=== PATIENT | female | born 1985 | race Caucasian/White ===

== ENCOUNTER 2025-01-08 13:32 | Outpatient (CLI) | payer MEDICAID, SELFPAY | END 2025-01-08 13:33 | disposition home or self-care (01) | PROVIDERS: PCP Physician Assistant; Visit Provider Family Medicine | DX: M53.3 Sacrococcygeal disorders, not elsewhere classified (principal) | CPT/HCPCS: G0260; 27096; J0702; Q9966 ==

== ENCOUNTER 2025-03-15 10:32 | Outpatient (CLI) | payer MEDICAID, SELFPAY ==
--- OUTSIDE RECORDS SUMMARY | 2025-03-16 00:17 | XMS_ITS | Clinical Summary ---
Author Organization [email or web address] [facility] Address [facility] [place] [address] Care Team Providers Care Senior Capital Markets Specialist Name Role Phone Angélica Alvarado Primary Care Provider [phone] Allergies No known active allergies Medications [id number] kierra Oil 1,000 mg (120 mg-180 mg) cap Take 1 capsule by mouth. 0 8 Active cholecalciferol (Vitamin D-3) 2,000 unit capsuleIndication s:Vitamin D deficiency Take 1 Capsule (2,000 units) by mouth once daily. 90 Capsule 3 1 Active folic acid 1 mg tabletIndications :Folic acid deficiency Take 1 Tablet (1 mg) by mouth once daily. 90 Tablet 3 3 Active desvenlafaxine succinate (Pristiq) 25 mg extended release tabletIndications :Moderate episode of recurrent major depressive disorder (HC) Take 1 Tablet (25 mg) by mouth once daily. 90 Tablet 3 5 Active LORazepam (ATIVAN) 0.5 mg tabIndications:So cial anxiety disorder Take 1 Tablet (0.5 mg) by mouth every 6 hours if needed for Anxiety. 30 Tablet 2 5 Active nitrofurantoin macrocrystals/mon ohydrate (Macrobid) 100 mg capsuleIndication s:Recurrent UTI (urinary tract infection) take 1 capsule as needed after sexual activity to avoid urinary tract infection 10 Capsule 12 5 Active dextroamphetamine -amphetamine 20 mg Extended-Release capsuleIndication s:ADHD (attention deficit hyperactivity disorder), combined type Take 1 Capsule (20 mg) by mouth once daily. 30 Capsule 5 Active dextroamphetamine -amphetamine (Adderall XR) 20 mg Extended-Release capsuleIndication s:ADHD (attention deficit hyperactivity disorder), combined type Take 1 Capsule (20 mg) by mouth once daily. 30 Capsule 5 025 Active dextroamphetamine -amphetamine (Adderall XR) 20 mg Extended-Release capsuleIndication s:ADHD (attention deficit hyperactivity disorder), combined type Take 1 Capsule (20 mg) by mouth once daily. 30 Capsule 5 025 Active topiramate 25 mg tabletIndications :Obesity (BMI 30-39.9) Take 25 mg at bedtime for 2 weeks, then increase to 50 mg at bedtime. 180 Tablet 3 5 Active codeine-guaiFENes in (Guaiatussin AC) 10-100 mg/5 mL liquidIndications :Acute cough Take 10 mL by mouth at bedtime if needed, may repeat once for Cough. 100 mL 5 025 Discontin ued(*Medi cation adjustmen t) dextroamphetamine -amphetamine 20 mg Extended-Release capsuleIndication s:ADHD (attention deficit hyperactivity disorder), combined type TAKE ONE CAPSULE BY MOUTH EVERY DAY. 30 Capsule 5 025 Discontin ued(Reord er (E-cancel not sent)) Active Problems Problem Noted Date Diagnosed Date Pap smear for cervical cancer screening 09/03/20 22 Overview (09/03/2022): 07/2022: NIL/HPV neg. Plan: Pap and HPV in 5 years. Obesity (BMI 30-39.9) 07/30/2022 Overview (07/30/2022): metformin Wheezing 07/30/2022 ADHD (attention deficit hype ractivity disorder), combined type 07/30/2022 Moderate episode of recurrent major depressive d isorder 01/23/2018 Tobacco use disorder 07/10/2012 Resolved Problems Problem Noted Date Diagnosed Date Resolved Date Alcohol dependence in remission 06/14/2019 10/16/2024 History of section complicating 03/06/2015 07/30/2022 Breech presentation 03/06/2015 07/30/20 History of 05/24/2011 014 Supervision of other normal 02/25/2010 11/10/2012 Other specified symptom asso ciated with female genital organs 02/25/2010 07/20/2011 Meconium passage during deli very affecting fetus or 02/25/2010 07/20/2011 Personal history of tobacco use, presenting hazards to health 02/25/2010 09/08/2014 Secondary uterine inertia, antepartum 02/25/2010 11/10/2012 Shortness of breath 11/08/2009 09/08/20 14 Overview (11/08/2009): With intercourse almost 20lbs weight gain since begin of Encounters Date Type Department Care Team Description 03/15/2025 11:00 AM CDT Office Visit [facility] [address] [place] [address] Pepito Back MD Procedure (Left SI pseudoarticulation injection) 03/11/2025 12:50 PM CDT Telemedicine [facility] [address] [place] [address] Angélica Alvarado PA Medication Management; Telehealth (Virtual visit no vitals taken) 03/11/2025 Travel 02/09/2025 Refill [facility] [address] [place] [address] Angélica Alvarado PA Refill Request (Dextroamphetamine-amphe tamine) 02/06/2025 Medical Messaging [facility] [address] [place] [address] Pepito Back MD Tamra Rinehart 01/08/2025 2:00 PM CDT Office Visit [facility] [address] [place] [address] Pepito Back MD Procedure (Left sacroiliac joint injection ) 01/07/2025 Travel 01/04/2025 Telephone [facility] [address] [place] [address] Pepito Back MD Work Note 01/02/2025 Telephone [facility] [address] [place] [address] Pepito Back MD Results 12/28/2024 9:53 AM CDT - 12/28/2024 11:59 PM CDT Hospital Encounter [facility] [address] [place] [address] Pepito Back MD Chronic left SI joint pain 12/28/2024 Travel 12/17/2024 1:40 PM CDT Office Visit [facility] [address] [place] [address] Pepito Back MD Musculoskeletal Problem (Consult left hip pain) 12/16/2024 1:20 PM CDT Office Visit [facility] [address] [place] [address] Vidhi Finch NP Cough; Chills; Chest Pain (From coughing) 12/16/2024 1:00 PM CDT Ancillary Procedure [facility] [address] [place] [address] 12/16/2024 Travel from Last 3 Months Immunizations Immunization Administration Dates Next Due DTaP 07/26/2006 HepA-HepB (Twinrix) 07/30/2022 Influenza Virus, Unspecified 08/23/2014,07/09/20 10,07/08/2009 Influenza, IIV3 (Age >=3 years) 07/10/2012,06/17 MMR 10/14/1998 Td (Age >=7 Years) 06/20/2018,10/14/1998 Tdap 12/27/2014,07/26/2006 Family History Medical History Relation Name Comments Good Health Brother 2 x 3 Other Father obesity Good Health Mother Relation Name Status Comments Brother 1 Alive 3 Brother 2 Father Alive Mother Alive Social History Tobacco Use Types Packs/Day Years Used Date Smoking Tobacco: Former Cigarettes 1 19 Smokeless Tobacco: Never Tobacco Cessation:Counseling Given: Not Answered Alcohol Use Standard Drinks/Week Comments Not Currently 0 (1 standard drink = 0.6 oz pur e alcohol) social PHQ-2 Answer Date Recorded PHQ-2 TOTAL SCORE 1 10/15/2024 Social Connections Answer Date Recorded Do you often feel lonely or isolated from those around you? 0 10/10/2024 Financial Resource Strain Answer Date R ecorded Difficulty of Paying Living Expenses 3 10/10/2024 Difficulty of Paying Living Expenses Not on file 10/10/2024 Food Insecurity Answer Date Recorded Do you worry your food will run out before you are able to buy more? 1 10/10/2024 Transportation Needs Answer Date Record ed Does lack of transportation keep you from medica l appointments? 1 10/10/2024 Does lack of transportation keep you from work, meetings or getting things that you need? 1 10/10/2024 Housing Stability Answer Date Recorded What is your housing situation today? 1 10/10/2024 Utilities Answer Date Recorded Do you have trouble paying f or utilities (for example, heat, electricity, water, phone)? 1 10/10/2024 Comments No Sex and Gender Information Value Date Recorded Sex Assigned at Not on file Legal Sex Female 7:08 AM FLOOR TECHNICIAN Gender Identity Not on file Sexual Orientation Not on file Occupation Industry Job Start Date Job End Date [employer] Not on file Not on file Not on file [employer] Not on file Not on file Not on file Not on file Not on file Not on file Not on file Obstetrics History Para Term AB IAB SAB Ectopic Multiple Livin g Live Births 3 3 3 0 0 0 0 0 0 3 3 Date Outcome GA Total Labor Labor/2nd/3rd Weight Sex Type Anes PTL Liz A1 A5 Name Clin 2009 Term 39w 5d 13h 00m/ 3.91 kg (8 lb 9.8 oz) M C-Sec tion Epidur al Livin g 8 9 Martinez Gaunt for Carolyn Delivery Location:[facility] Comments:failure to pr ogress 2011 Term 39w 3d 4.03 kg (8 lb 14 oz) F C-Sec tion Spinal N Livin g Malave Delivery Location:[facility] 2014 Term 41w 2d 3.5 kg (7 lb 11.5 oz) F C-Sec tion Spinal N Livin g 9 9 RINEH ART,B G(RAMSAY ) Rosas Delivery Location:[facility] Comments:Breech Last Filed Vital Signs Vital Sign Reading Time Taken Comments Blood Pressure 139/89 12/17/2024 1:50 PM CDT Pulse 73 12/17/2024 1:50 PM CDT Temperature 36.6 C (97.8 F) 12/17/2024 1:50 PM CDT Respiratory Rate 18 12/16/2024 12:4 4 PM CDT Oxygen Saturation 99% 12/17/2024 1:50 PM CDT Inhaled Oxygen Concentration - - Weight 112.8 kg (248 lb 9.6 oz) 12/17/2024 1:50 PM CDT shoes on Height 169.9 cm (5' 6.89) 10/15/2024 1:25 PM CS T Body Mass Index 39.06 10/15/2024 1:25 PM FLOOR TECHNICIAN Plan of Treatment Health Maintenance Due Date Last Done Comments Hepatitis B series for 19+ (2 of 3 - Hep B Twinrix 3-dose series) 08/27/2022 07/30/2022 COVID-19 vaccine series ( season) 2024 Influenza Vaccine (Season Ended) 2025 08/23/2014, 07/10/2012, 06/17/2011, Additional history exists BMI (ht and wt on same day) for age 18+ 10/15/2025 10/15/2024, 07/30/2022, 05/07/2022, Additional history exists Depression screening for age 12+ 10/15/2025 10/15/2024, 06/16/2023, 06/13/2023, Additional history exists Pap test for age 21-65 07/30/2027 , 07/30/2022, 10/31/2015, Additional history exists Tetanus booster 06/20/2028 06/20/2018, 04/0 11/2014, 07/26/2006, Additional history exists Tdap Completed 12/27/2014, 07/26/2006 HIV for age 15-65 Completed 07/30/2022, 07/20/2011 Hepatitis C screening for age 18-79 Completed 07/30/2022, 07/20/2011 Pneumococcal series for age 6-49 Aged Out No longer eligible based on patient's age to complete this topic Procedures Procedure Name Priority Date/Time Associated Diagnosis Comments XR INJ SACROILIAC JOINT LEFT Routine 01/08/2025 12:00 AM CDT Chronic left SI joint pain CT SPINE SACRUM WO Routine 12/28/2024 10 :22 AM CDT Chronic left SI joint pain XR CHEST 2 VIEWS PA AND LATERAL STAT 12/16/2024 1:06 PM CDT Acute cough ANTI HIV 1/2 Routine 07/30/2022 9:53 AM CDT Screening examination for venereal disease ANTI HCV Routine 07/30/2022 9:53 AM CDT Screening examination for venereal disease PSYCHIATRIC NURSE PRACTITIONER THIN PREP PAP SCREEN IMAGED Routine 07/30/2022 9:53 AM CDT Pap smear for cervical cancer screening from Last 3 Months or Most Recently Relevant to Health Maintenance Results * XR INJ SACROILIAC JOINT LEFT (01/08/2025 12:00 AM CDT) Anatomical Region Laterality Modality SACRUM Other us Pepito Back MD FLUOROSCOPY Final Resu lt * CT SPINE SACRUM WO (12/28/2024 10:22 AM CDT) Anatomical Region Laterality Modality Computed Tomogra phy 12/31/2024 7:38 AM CDT Impressions 12/31/2024 7:38 AM CDT 1. Normal alignment. No fractures. 2. Asymmetric moderate degenerative changes of left SI joint compared to the right. No gross abnormal interspace widening or joint effusions. 3. Asymmetric sacralization of L5 on the left. Please note that all CT scans at this facility use dose modulation, iterative reconstruction, and/or weight-based dosing when appropriate to reduce radiation dose to as low as reasonably achievable. Dictated by Magdy Ames MD @ 12/31/2024 7:38:20 AM (Electronically Signed) Narrative 12/31/2024 7:38 AM CDT For Patients: As a result of the Cures Act, medical imaging exams and procedure reports are released immediately into your electronic medical record. You may view this report before your referring provider. If you have questions, please contact your health care provider. INDICATION: Chronic left SI joint pain. COMPARISON: None. TECHNIQUE: Noncontrast CT of these lower lumbar spine, sacrum and coccyx. FINDINGS: Normal alignment of the visualized lower lumbar spine, sacrum and coccyx. No fractures. Best appreciated on axial coronal imaging, there is asymmetric moderate degenerative changes of the left SI joint compared to the right (series 4, image 46; series 5, image 66). However, there is no gross abnormal joint space widening or large joint effusions. Asymmetric sacralization of L5 on the left. No sclerotic or lytic osseous lesions. No narrowing of the ventral or dorsal neural foramina of the sacrum. No presacral edema or inflammation. Procedure Note Magdy Ames MD, PhD - 12/31/2024 For Patients: As a result of the Cures Act, medical imagingexams and procedure reports are released immediately into your electronicmedical record. You may view this report before your referring provider.If you have questions, please contact your health care provider. INDICATION: Chronic left SI joint pain. COMPARISON: None. TECHNIQUE: Noncontrast CT of these lower lumbar spine, sacrum and coccyx. FINDINGS: Normal alignment of the visualized lower lumbar spine, sacrum and coccyx.No fractures. Best appreciated on axial coronal imaging, there is asymmetric moderatedegenerative changes of the left SI joint compared to the right (series 4,image 46; series 5, image 66). However, there is no gross abnormal jointspace widening or large joint effusions. Asymmetric sacralization of L5 on the left. No sclerotic or lytic osseous lesions. No narrowing of the ventral or dorsal neural foramina of the sacrum. No presacral edema or inflammation. IMPRESSION: 1. Normal alignment. No fractures. 2. Asymmetric moderate degenerative changes of left SI joint compared tothe right. No gross abnormal interspace widening or joint effusions. 3. Asymmetric sacralization of L5 on the left. Please note that all CT scans at this facility use dose modulation,iterative reconstruction, and/or weight-based dosing when appropriate toreduce radiation dose to as low as reasonably achievable. Dictated by Magdy Ames MD @ 12/31/2024 7:38:20 AM (Electronically Signed) us Pepito Back MD CT Final Resu lt * XR CHEST 2 VIEWS PA AND LATERAL (12/16/2024 1:06 PM CDT) Anatomical Region Laterality Modality CHEST, THORAX, Lung, HEART Compu mary Radiography 12/16/2024 1:34 PM CDT Impressions 12/16/2024 1:34 PM CDT No acute findings and no significant change from the prior exam. Dictated by Lashawn Oneal MD @ 12/16/2024 1:34:13 PM (Electronically Signed) Narrative 12/16/2024 1:34 PM CDT For Patients: As a result of the Cures Act, medical imaging exams and procedure reports are released immediately into your electronic medical record. You may view this report before your referring provider. If you have questions, please contact your health care provider. INDICATION: Acute cough. TECHNIQUE: Chest 2 views. COMPARISON: September 20, 2023. FINDINGS: Cardiovascular and mediastinum: Cardiomediastinal silhouette is within normal limits. Lungs and pleural spaces: Lungs are clear. No sign of pleural effusion. No pneumothorax. Bones and soft tissues: No significant findings. Procedure Note Lashawn Oneal MD - 12/16/2024 For Patients: As a result of the Cures Act, medical imagingexams and procedure reports are released immediately into your electronicmedical record. You may view this report before your referring provider.If you have questions, please contact your health care provider. INDICATION: Acute cough. TECHNIQUE: Chest 2 views. COMPARISON: September 20, 2023. FINDINGS: Cardiovascular and mediastinum: Cardiomediastinal silhouette is withinnormal limits. Lungs and pleural spaces: Lungs are clear. No sign of pleural effusion.No pneumothorax. Bones and soft tissues: No significant findings. IMPRESSION: No acute findings and no significant change from the prior exam. Dictated by Lashawn Oneal MD @ 12/16/2024 1:34:13 PM (Electronically Signed) us Vidhi Finch NP GENERAL IMAGING Final Re sult * PSYCHIATRIC NURSE PRACTITIONER THIN PREP PAP SCREEN IMAGED (07/30/2022 9:53 AM CDT) Case Report Gynecologic Cytology Report Case: [id number] Authorizing Provider: Kenya Virgen NP Collected: 07/30/2022 0953 Ordering Location: [facility] Received: 07/30/2022 0953 Clinic First Screen: Anyi Lim Rescreen: Etta Hernandez Specimen: PSYCHIATRIC NURSE PRACTITIONER ThinPrep Vial Screening, Cervical 08/30/2022 12:54 PM FLOOR TECHNICIAN [facility] INTERPRETATION/ RESULT NEGATIVE FOR INTRAEPITHELIAL LESION OR MALIGNANCY (NIL) (none) 08/30/2022 12:54 PM FLOOR TECHNICIAN [facility] at 1254 FLOOR TECHNICIAN SPECIMEN ADEQUACY Satisfactory for evaluation Endocervical component present 08/30/2022 12:54 PM FLOOR TECHNICIAN [facility] HPV REQUEST HPV and PAP 08/30/2022 12:54 PM FLOOR TECHNICIAN [facility] Date of LMP 07/19/22 08/30/2022 12:54 PM FLOOR TECHNICIAN [facility] Last Pap Date 10/31/15 08/30/2022 12:54 PM FLOOR TECHNICIAN [facility] Last Pap Result NIL 12:54 PM FLOOR TECHNICIAN [facility] Abnormal Pap or [place] Bx in last 5 years No 08/30/2022 12:54 PM FLOOR TECHNICIAN [facility] Menstrual Status Regular Periods 08/30/2022 12:54 PM FLOOR TECHNICIAN [facility] [place] Bx Done Today No 08/30/2022 12:54 PM FLOOR TECHNICIAN [facility] Additional Information None given 08/30/2022 12:54 PM FLOOR TECHNICIAN [facility] Comment: Cytology is screened at [facility] - [address], [place] [address] and [facility] - [address], [place] [address] and [facility] - [address] [place] [address] Interpreted at [facility] - [address], [place] [address] Automated Review Successful 08/30/2022 12:54 PM FLOOR TECHNICIAN [facility] Comment:Specimen processed s uccessfully by automated cheese cook device, ThinPrep Imaging System, [employer] ANCILLARY TESTING PSYCHIATRIC NURSE PRACTITIONER HPV Ordered, Please see separate report 08/30/2022 12:54 PM FLOOR TECHNICIAN [facility] Note The pap test is a screening technique, not a diagnostic procedure. It is used primarily to screen for squamous cancers and precursor lesions. Published studies have shown that it is subject to both false negative and false positive results. The pap test should not be used as the sole means to diagnose or exclude pre-malignant and malignant lesions. 08/30/2022 12:54 PM FLOOR TECHNICIAN [facility] Other (Cervical) Non-Blood / Unknown 07/30/2022 9:53 AM CDT 07/30/2022 9:53 AM CDT Kenya Virgen NP PATHOLOGY/CYTOLOGY Final Result [facility] [address] [place] [address], [place] * ANTI HCV (07/30/2022 9:53 AM CDT) HEPATITIS C ANTIBODY Non-React neela Non-React neela 07/30/2022 11:22 PM CDT [facility] Comment:Antibodies to HCV no t detected; does not exclude the possibility of exposure to HCV. Blood BLOOD SPECIMEN / Unknown Venipuncture / Unknown 07/30/2022 9:53 AM CDT 07/30/2022 9:55 AM CDT us Kenya Virgen ROUTE DELIVERY SUPERVISOR SEND OUTS Final Result [facility] [address] [place] [address], [place] * ANTI HIV 1/2 (07/30/2022 9:53 AM CDT) HIV-1/HIV-2 ANTIBODY Non-Reacti ve Non-Reacti ve 07/30/2022 11:20 PM CDT [facility] Comment:HIV-1 p24 and HIV-1/ HIV-2 Ab not detected. Blood BLOOD SPECIMEN / Unknown Venipuncture / Unknown 07/30/2022 9:53 AM CDT 07/30/2022 9:55 AM CDT Kenya Virgen ROUTE DELIVERY SUPERVISOR SEND OUTS Final Result [facility] [address] [place] [address], [place] from Last 3 Months or Most Recently Relevant to Health Maintenance Insurance [facility] [address] [place] [address] x5 (Home) [phone] x5 (Work) ESCREEN ATTN [address] [address] [place] [address] [facility] Advance Directives * Full Code (Latest Code Status on File) Date Activated Date Inactivated Comments 03/08/2015 8:39 AM 03/11/2015 3:02 PM * Full Code Date Activated Date Inactivated Comments 03/08/2015 12:50 AM 03/08/2015 8:39 AM * Full Code Date Activated Date Inactivated Comments 03/07/2015 12:39 PM 03/07/2015 2:58 PM * Full Code Date Activated Date Inactivated Comments 03/06/2015 2:17 AM 03/06/2015 7:51 AM Question Answer Comments Code Status Discussion: Not Discussed * Full Code Date Activated Date Inactivated Comments 03/04/2015 1:39 AM 03/04/2015 4:29 AM Care Teams Senior Capital Markets Specialist Relationship Specialty Start Date End Date Angélica Alvarado PA [address] [place] [address] PCP - General Physician Organic Section Technical Lead 06/13/23
--- OUTSIDE RECORDS SUMMARY | 2025-03-16 00:17 | XMS_ITS | Data Portability ---
Author Organization [facility] Address [address] [place] [address] [address] [place] [address] Care Team Providers Care Director Custom Name Role Phone [place] [facility] OTHER Assessment Encounter Date Assessment Date Assessment LastModified by Organization Details LastModified Time 06/27/2019 06/27/2019 Patient is cleared for admission into chemical dependence treatment facility and approved for routine standing orders per facility protocol. Patient is free from communicable diseases per patient self-report. Lab results will be faxed to the facility as soon as they are available and reviewed by the provider, and facility nursing staff to provide those results to patient. mike Not available 06/27/2019 15:23:42 Plan of Treatment Reminders Order Date Submit Date Provider Last Modified By Organization Details Last Modified Time Details Appointments None recorded . Lab CBC w/ auto diff 019 06/27/20 19 [facility], [address] [place], [address], 9 14:10:05 CMP, serum or plasma 06/27/20 19 [facility], [address] [place], [address], 9 14:10:06 Referral None recorded . Procedures None recorded . Surgeries None recorded . Imaging None recorded . Medication Orders None recorded . Patient TargetsNo targets recorded. Patient InstructionsNo instructions recorded. Reason for Referral None Reported. Results Created Date Observation Date Name Description Value Unit Range Abnormal Flag Note LastModifiedBy Organization Detail LastModifiedTime 06/27/20 19 06/29/2019 CBC w/ auto diff WBC 8.0 x10e3 /uL 3.4-10 .8 Not Available [facility] ([facility]) [address] [facility], [place], [address], 06/29/2019 14:10:05 06/27/20 19 06/29/2019 CBC w/ auto diff RBC 4.58 x10e6 /uL 3.77-5 .28 Not Available [facility] ([facility]) [address] [facility], [place], [address], 06/29/2019 14:10:05 06/27/20 19 06/29/2019 CBC w/ auto diff hemoglobin 14.6 g/dL 11.1-1 5.9 Not Available [facility] ([facility]) [address] [facility], [place], [address], 06/29/2019 14:10:05 06/27/20 19 06/29/2019 CBC w/ auto diff hematocrit 42.3 % 34.0-4 6.6 Not Available [facility] ([facility]) [address] [place], [address], 06/29/2019 14:10:05 06/27/20 19 06/29/2019 CBC w/ auto diff MCV 92 fL 79-97 Not Available [facility] ([facility]) [address] [facility], [place], [address], 06/29/2019 14:10:05 06/27/20 19 06/29/2019 CBC w/ auto diff MCH 31.9 pg 26.6-3 3.0 Not Available [facility] ([facility]) [address] [place], [address], 06/29/2019 14:10:05 06/27/20 19 06/29/2019 CBC w/ auto diff MCHC 34.5 g/dL 31.5-3 5.7 Not Available [facility] ([facility]) [address] [place] [address], [address], 06/29/2019 14:10:05 06/27/20 19 06/29/2019 CBC w/ auto diff RDW 12.9 % 12.3-1 5.4 Not Available [facility] ([facility]) [address] [place], [address], 06/29/2019 14:10:05 06/27/20 19 06/29/2019 CBC w/ auto diff platelets 247 x10e3 /uL 150-45 0 Not Available [facility] ([facility]) [address] [facility], [place], [address], 06/29/2019 14:10:05 06/27/20 19 06/29/2019 CBC w/ auto diff neutrophils 67 % not estab. Not Available [facility] ([facility]) [address] [place], [address], 06/29/2019 14:10:05 06/27/20 19 06/29/2019 CBC w/ auto diff lymphs 24 % not estab. Not Available [facility] ([facility]) [address] [place], [address], 06/29/2019 14:10:05 06/27/20 19 06/29/2019 CBC w/ auto diff monocytes 7 % not estab. Not Available [facility] ([facility]) [address] [facility], [place], [address], 06/29/2019 14:10:05 06/27/20 19 06/29/2019 CBC w/ auto diff eos 2 % not estab. Not Available [facility] ([facility]) [address] [facility], [place], [address], 06/29/2019 14:10:05 06/27/20 19 06/29/2019 CBC w/ auto diff basos 0 % not estab. Not Available [facility] ([facility]) [address] [facility], [place], [address], 06/29/2019 14:10:05 06/27/20 19 06/29/2019 CBC w/ auto diff immature cells ASSISTANT VICE PRESIDENT Not Available [facility] ([facility]) [address] [facility], [place], [address], 06/29/2019 14:10:05 06/27/2006/29/2019 CBC w/ auto diff neutrophils (absolute) 5.4 x10e3 /uL 1.4-7. 0 Not Available [facility] ([facility]) [address] [facility], [place], [address], 06/29/2019 14:10:05 06/27/2006/29/2019 CBC w/ auto diff lymphs (absolute) 2.0 x10e3 /uL 0.7-3. 1 Not Available [facility] ([facility]) [address] [facility], [place], [address], 06/29/2019 14:10:05 06/27/2006/29/2019 CBC w/ auto diff monocytes(ab solute) 0.5 x10e3 /uL 0.1-0. 9 Not Available [facility] ([facility]) [address] [facility], [place], [address], 06/29/2019 14:10:05 06/27/2006/29/2019 CBC w/ auto diff eos (absolute) 0.1 x10e3 /uL 0.0-0. 4 Not Available [facility] ([facility]) [address] [facility], [place], [address], 06/29/2019 14:10:05 06/27/2006/29/2019 CBC w/ auto diff baso (absolute) 0.0 x10e3 /uL 0.0-0. 2 Not Available [facility] ([facility]) [address] [facility], [place], [address], 06/29/2019 14:10:05 06/27/2006/29/2019 CBC w/ auto diff immature granulocytes 0 % not estab. Not Available [facility] ([facility]) [address] [facility], [place], [address], 06/29/2019 14:10:05 06/27/2006/29/2019 CBC w/ auto diff immature grans (abs) 0.0 x10e3 /uL 0.0-0. 1 Not Available [facility] ([facility]) [address] [place], [address], 06/29/2019 14:10:05 06/27/2006/29/2019 CBC w/ auto diff NRBC ASSISTANT VICE PRESIDENT Not Available [facility] ([facility]) [address] [place], [address], 06/29/2019 14:10:05 06/27/2006/29/2019 CBC w/ auto diff hematology comments: ASSISTANT VICE PRESIDENT Not Available [facility] ([facility]) [address] [place], [address], 06/29/2019 14:10:05 06/27/2006/29/2019 CMP, serum or plasm a glucose 88 mg/dL 65-99 Not Available [facility] ([facility]) [address] [place], [address], 06/29/2019 14:10:05 06/27/2006/29/2019 CMP, serum or plasm a BUN 10 mg/dL 6-20 Not Available [facility] ([facility]) [address] [place], [address], 06/29/2019 14:10:05 06/27/2006/29/2019 CMP, serum or plasm a creatinine 0.78 mg/dL 0.57-1 .00 Not Available [facility] ([facility]) [address] [facility] [place], [address], 06/29/2019 14:10:05 06/27/2006/29/2019 CMP, serum or plasm a eGFR if nonafricn AM 100 mL/mi n/1.7 3 >59 Not Available [facility] ([facility]) [address] [place], [address], 06/29/2019 14:10:05 06/27/20 19 06/29/2019 CMP, serum or plasm a eGFR if africn AM 116 mL/mi n/1.7 3 >59 Not Available [facility] ([facility]) [address] [facility] [place], [address], 06/29/2019 14:10:05 06/27/2006/29/2019 CMP, serum or plasm a BUN/creatini ne ratio 13 9-23 Not Available [facility] ([facility]) [address] [facility] [place], [address], 06/29/2019 14:10:05 06/27/2006/29/2019 CMP, serum or plasm a sodium 140 mmol/ L 134-14 4 Not Available [facility] ([facility]) [address] [place], [address], 06/29/2019 14:10:05 06/27/2006/29/2019 CMP, serum or plasm a potassium 4.5 mmol/ L 3.5-5. 2 Not Available [facility] ([facility]) [address] [facility], [place], [address], 06/29/2019 14:10:05 06/27/20 19 06/29/2019 CMP, serum or plasm a chloride 101 mmol/ L 96-106 Not Available [facility] ([facility]) [address] [place], [address], 06/29/2019 14:10:05 06/27/2006/29/2019 CMP, serum or plasm a carbon dioxide, total 24 mmol/ L 20-29 Not Available [facility] ([facility]) [address] [place], [address], 06/29/2019 14:10:05 06/27/20 19 06/29/2019 CMP, serum or plasm a calcium 9.5 mg/dL 8.7-10 .2 Not Available [facility] ([facility]) [address] [facility], [place], [address], 06/29/2019 14:10:05 06/27/2006/29/2019 CMP, serum or plasm a protein, total 7.0 g/dL 6.0-8. 5 Not Available [facility] ([facility]) [address] [facility] [place], [address], 06/29/2019 14:10:05 06/27/2006/29/2019 CMP, serum or plasm a albumin 4.6 g/dL 3.5-5. 5 Not Available [facility] ([facility]) [address] [facility], [place], [address], 06/29/2019 14:10:05 06/27/2006/29/2019 CMP, serum or plasm a globulin, total 2.4 g/dL 1.5-4. 5 Not Available [facility] ([facility]) [address] [facility], [place], [address], 06/29/2019 14:10:05 06/27/2006/29/2019 CMP, serum or plasm a A/G ratio 1.9 1.2-2. 2 Not Available [facility] ([facility]) [address] [facility], [place], [address], 06/29/2019 14:10:05 06/27/2006/29/2019 CMP, serum or plasm a bilirubin, total 0.4 mg/dL 0.0-1. 2 Not Available [facility] ([facility]) [address] [facility] [place], [address], 06/29/2019 14:10:05 06/27/2006/29/2019 CMP, serum or plasm a alkaline phosphatase 62 IU/L 39-117 Not Available [facility] ([facility]) [address] [facility] [place], [address], 06/29/2019 14:10:05 06/27/2006/29/2019 CMP, serum or plasm a AST (SGOT) 16 IU/L 0-40 Not Available [facility] ([facility]) [address] [facility], [place], [address], 06/29/2019 14:10:05 06/27/20 19 06/29/2019 CMP, serum or plasm a ALT (SGPT) 5 IU/L 0-32 Not Available [facility] ([facility]) [address] [facility], [place], [address], 06/29/2019 14:10:05 Result Notes Documentation Provider Name and Address Organization Details Recorded Time Cbc W/ Auto Diff : isabelle cameron, [place] - [facility] 07/02/2019 13:15:45 Cmp, Serum Or Plasma : isabelle Bah nisha, [place] - [facility] 07/02/2019 13:16:37 Problems Name Problem SNOMED Code Status Onset Date Resolution Date Notes Provider Name and Address Organization Details Recorded Time Mixed anxiety and depressive disorder 517615136 Active Whit Valentinetianalulu null, [place] - [facility] 9 15:19:00 Alcohol dependence 56284315 Active Whit Joyce null, [place] - [facility] 9 15:19:24 Cigarette smoker 52897638 Active 019 Emily cameron, [place] - [facility] 9 15:35:47 Problem Notes None recorded. Medical Equipment None Reported. Allergies No known drug allergies Medications Not known to be on any medication Vitals Date Recorded Body height Body mass index (BMI) Body weight Heart rate Respiratory rate Body temperature Oxygen saturation Oxygen saturation in Arterial blood by Pulse oximetry Systolic blood pressure Diastolic blood pressure Provider Name and Address Organization Details Last Updated DateTime 9 167.64 cm 35.5 kg/m2 80686.3 2 g 64 /min 15 /min 99 [degF] 99 % 99 % 120 mm[Hg] 80 mm[Hg] Whit Joyce [place] - [facility] 9 15:25:42 Social History Question Answer Notes LastModified by Organizat ion Details LastModified Time Tobacco Smoking Status Current Every Day Smoker Whit cameron, [place] - [facility] 06/27/2019 15:19:53 Which Illicit Or Recreational Drugs Have You Used? Pt Denies Information not available 06/27/2019 2h. Tobacco Use Yes Informati on not available 06/27/2019 How Much Tobacco Do You Smoke? 1.5 PPD Information not available 06/27/2019 How Many Years Have You Smoked Tobacco? 21 Information not available 06/27/2019 Sex: Female Functional Status Question Answer Note LastModified by Organizat ion Details LastModified Time What is your level of alcohol consumption? Heavy Information not available 06/27/2019 Do you or have you ever used smokeless tobacco? Never used smokeless tobacco Information not available 06/27/2019 Are you able to walk? YESWOREST Information not available 06/27/2019 Do you or have you ever used e-cigarettes or vape? Never used electronic cigarettes Information not available 06/27/2019 Mental Status None recorded. Family History Nothing Reported Notes:depression and anxiety runs in family Medical History No medical history recorded. Gynecological HistoryNo gynecological history recorded. Obstetrics History GPAL:G 0 P 0 0 0 0 Past Encounters Encounter ID Performer Location Encounter Start Date Encounter Closed Date Diagnosis/Indication Diagnosis SNOMED-CT Code Diagnosis ICD10 Code Diagnosis Note [id number] Emily Bah CNP [facility] ([facility]) [address] [place] [address] 06/27/2019 15:22:35 06/28/2019 18:06:37 Mixed anxiety and depressive disorder 107031843 F41.8 If not already done, patient to see in-house[facility] at this facility for evaluation and to have treatment plan optimized. Cigarette smoker 8967707 7 F17.210 Counseled on the importance of quitting smoking tobacco. Patient is at the pre-contem plation stage of change. Not ready to quit. Did not discuss pharmacolo gic and non-pharma cologic methods of quitting with patient. Patient is encouraged to call 3-942-QUIT -NOW for free tobacco cessation support and resources. Alcohol dependence 60261 003 F10.20 Currently voluntary for inpatient alcohol dependence treatment at [facility] . Doing well, remaining optimistic about recovery. Health Concerns Section Related Observation LastModified by Organization Detai ls LastModified Time None Recorded Concern Status LastModified by Organization Details LastModified Time None Recorded Advance Directives Directive None Recorded Payers Insurance Date Sequence Insurance Name Policy Number Policy [place] Covered Member ID [place] Member ID Guarantor Name 06/27/2019 1 [employer] - DOS PRIOR TO 2021 (MEDICAID REPLACEMENT - HMO) HAILEE Charles [id number] Tiana Charles Notes Date Note Type Note Provider Name and Address Organization Details Recorded Time 06/27/2019 text/html New patient pres ents today for H&P as required for admission to a chemical dependence treatment program at [facility] [place]. The drug of choice was alcohol, ingested , never injected. Last use was 06/23/19. Patient is in voluntary treatment. Is optimistic about quitting and remaining sober. Desires STI and bloodborne pathogen testing. Was last tested 10 yrs ago. Has no risk factors for infectious disease/bloodborne pathogen transmission. Smokes cigarettes, 1PPD. Not ready to quit at this time, would like to conquer one addiction at a time. Mood is good. Sleeping well. In a [facility] sexual monogamous relationshipNo risk of - [facility]b [facility] Last appt 06/07/19 LINNETTE Sun - [facility] 06/27/2019 15:36:56 OBGyn Episode No OBEpisode recorded.
--- OUTSIDE RECORDS SUMMARY | 2025-03-16 00:17 | XMS_ITS | Data Portability ---
Author Organization [place] - [facility] Address [address] [place] [address] [address] [place] [address] Care Team Providers Care Mobile Paramedical Examiner Name Role Phone [place] [facility] [...] CBC w/ auto diff 019 06/27/20 19 [facility], [address] [place], [address], 9 14:10:05 CMP, serum or plasma 06/27/20 19 [facility], [address] [place], [address], 9 14:10:06 Referral None recorded . Procedures [...] x10e3 /uL 3.4-10 .8 Not Available [facility] ([facility]) [address] [facility], [place], [address], 06/29/2019 14:10:05 06/27/20 19 06/29/2019 CBC w/ auto diff RBC 4.58 x10e6 /uL 3.77-5 .28 Not Available [facility] ([facility]) [address] [facility], [place], [address], 06/29/2019 14:10:05 06/27/20 19 06/29/2019 CBC w/ auto diff hemoglobin 14.6 g/dL 11.1-1 5.9 Not Available [facility] ([facility]) [address] [facility], [place], [address], 06/29/2019 14:10:05 06/27/20 19 06/29/2019 CBC w/ auto diff hematocrit 42.3 % 34.0-4 6.6 Not Available [facility] ([facility]) [address] [place], [address], 06/29/2019 14:10:05 06/27/20 19 06/29/2019 CBC w/ auto diff MCV 92 fL 79-97 Not Available [facility] ([facility]) [address] [facility], [place], [address], 06/29/2019 14:10:05 06/27/20 19 06/29/2019 CBC w/ auto diff MCH 31.9 pg 26.6-3 3.0 Not Available [facility] ([facility]) [address] [place], [address], 06/29/2019 14:10:05 06/27/20 19 06/29/2019 CBC w/ auto diff MCHC 34.5 g/dL 31.5-3 5.7 Not Available [facility] ([facility]) [address] [place] [address], [address], 06/29/2019 14:10:05 06/27/20 19 06/29/2019 CBC w/ auto diff RDW 12.9 % 12.3-1 5.4 Not Available [facility] ([facility]) [address] [place], [address], 06/29/2019 14:10:05 06/27/20 19 06/29/2019 CBC w/ auto diff platelets 247 x10e3 /uL 150-45 0 Not Available [facility] ([facility]) [address] [facility], [place], [address], 06/29/2019 14:10:05 06/27/20 19 06/29/2019 CBC w/ auto diff neutrophils 67 % not estab. Not Available [facility] ([facility]) [address] [place], [address], 06/29/2019 14:10:05 06/27/20 19 06/29/2019 CBC w/ auto diff lymphs 24 % not estab. Not Available [facility] ([facility]) [address] [place], [address], 06/29/2019 14:10:05 06/27/20 19 06/29/2019 CBC w/ auto diff monocytes 7 % not estab. Not Available [facility] ([facility]) [address] [facility], [place], [address], 06/29/2019 14:10:05 06/27/20 19 06/29/2019 CBC w/ auto diff eos 2 % not estab. Not Available [facility] ([facility]) [address] [facility], [place], [address], 06/29/2019 14:10:05 06/27/20 19 06/29/2019 CBC w/ auto diff basos 0 % not estab. Not Available [facility] ([facility]) [address] [facility], [place], [address], 06/29/2019 14:10:05 06/27/20 19 06/29/2019 CBC w/ auto diff immature cells HAND WELT BUTTER Not Available [facility] ([facility]) [address] [facility], [place], [address], 06/29/2019 14:10:05 06/27/2006/29/2019 CBC w/ auto diff neutrophils (absolute) 5.4 x10e3 /uL 1.4-7. 0 Not Available [facility] ([facility]) [address] [facility], [place], [address], 06/29/2019 14:10:05 06/27/2006/29/2019 CBC w/ auto diff lymphs (absolute) 2.0 x10e3 /uL 0.7-3. 1 Not Available [facility] ([facility]) [address] [facility], [place], [address], 06/29/2019 14:10:05 06/27/2006/29/2019 CBC w/ auto diff monocytes(ab solute) 0.5 x10e3 /uL 0.1-0. 9 Not Available [facility] ([facility]) [address] [facility], [place], [address], 06/29/2019 14:10:05 06/27/2006/29/2019 CBC w/ auto diff eos (absolute) 0.1 x10e3 /uL 0.0-0. 4 Not Available [facility] ([facility]) [address] [facility], [place], [address], 06/29/2019 14:10:05 06/27/2006/29/2019 CBC w/ auto diff baso (absolute) 0.0 x10e3 /uL 0.0-0. 2 Not Available [facility] ([facility]) [address] [facility], [place], [address], 06/29/2019 14:10:05 06/27/2006/29/2019 CBC w/ auto diff immature granulocytes 0 % not estab. Not Available [facility] ([facility]) [address] [facility], [place], [address], 06/29/2019 14:10:05 06/27/2006/29/2019 CBC w/ auto diff immature grans (abs) 0.0 x10e3 /uL 0.0-0. 1 Not Available [facility] ([facility]) [address] [place], [address], 06/29/2019 14:10:05 06/27/2006/29/2019 CBC w/ auto diff NRBC HAND W[employer]T [employer]TER Not Available [facility] ([facility]) [address] [place], [address], 06/29/2019 14:10:05 06/27/2006/29/2019 CBC w/ auto diff hematology comments: HAND WELT BUTTER Not Available [facility] ([facility]) [address] [place], [address], 06/29/2019 14:10:05 06/27/2006/29/2019 CMP, serum or plasm a glucose 88 mg/dL 65-99 Not Available [facility] ([facility]) [address] [place], [address], 06/29/2019 14:10:05 06/27/2006/29/2019 CMP, serum or plasm a BUN 10 mg/dL 6-20 Not Available [facility] ([facility]) [address] [place], [address], 06/29/2019 14:10:05 06/27/2006/29/2019 CMP, serum or plasm a creatinine 0.78 mg/dL 0.57-1 .00 Not Available [facility] ([facility]) [address] [facility] [place], [address], 06/29/2019 14:10:05 06/27/2006/29/2019 CMP, serum or plasm a eGFR if nonafricn AM 100 mL/mi n/1.7 3 >59 Not Available [facility] ([facility]) [address] [place], [address], 06/29/2019 14:10:05 06/27/20 19 06/29/2019 CMP, serum or plasm a eGFR if africn AM 116 mL/mi n/1.7 3 >59 Not Available [facility] ([facility]) [address] [facility] [place], [address], 06/29/2019 14:10:05 06/27/2006/29/2019 CMP, serum or plasm a BUN/creatini ne ratio 13 9-23 Not Available [facility] ([facility]) [address] [facility] [place], [address], 06/29/2019 14:10:05 06/27/2006/29/2019 CMP, serum or plasm a sodium 140 mmol/ L 134-14 4 Not Available [facility] ([facility]) [address] [place], [address], 06/29/2019 14:10:05 06/27/2006/29/2019 CMP, serum or plasm a potassium 4.5 mmol/ L 3.5-5. 2 Not Available [facility] ([facility]) [address] [facility], [place], [address], 06/29/2019 14:10:05 06/27/20 19 06/29/2019 CMP, serum or plasm a chloride 101 mmol/ L 96-106 Not Available [facility] ([facility]) [address] [place], [address], 06/29/2019 14:10:05 06/27/2006/29/2019 CMP, serum or plasm a carbon dioxide, total 24 mmol/ L 20-29 Not Available [facility] ([facility]) [address] [place], [address], 06/29/2019 14:10:05 06/27/20 19 06/29/2019 CMP, serum or plasm a calcium 9.5 mg/dL 8.7-10 .2 Not Available [facility] ([facility]) [address] [facility], [place], [address], 06/29/2019 14:10:05 06/27/2006/29/2019 CMP, serum or plasm a protein, total 7.0 g/dL 6.0-8. 5 Not Available [facility] ([facility]) [address] [facility] [place], [address], 06/29/2019 14:10:05 06/27/2006/29/2019 CMP, serum or plasm a albumin 4.6 g/dL 3.5-5. 5 Not Available [facility] ([facility]) [address] [facility], [place], [address], 06/29/2019 14:10:05 06/27/2006/29/2019 CMP, serum or plasm a globulin, total 2.4 g/dL 1.5-4. 5 Not Available [facility] ([facility]) [address] [facility], [place], [address], 06/29/2019 14:10:05 06/27/2006/29/2019 CMP, serum or plasm a A/G ratio 1.9 1.2-2. 2 Not Available [facility] ([facility]) [address] [facility], [place], [address], 06/29/2019 14:10:05 06/27/2006/29/2019 CMP, serum or plasm a bilirubin, total 0.4 mg/dL 0.0-1. 2 Not Available [facility] ([facility]) [address] [facility] [place], [address], 06/29/2019 14:10:05 06/27/2006/29/2019 CMP, serum or plasm a alkaline phosphatase 62 IU/L 39-117 Not Available [facility] ([facility]) [address] [facility] [place], [address], 06/29/2019 14:10:05 06/27/2006/29/2019 CMP, serum or plasm a AST (SGOT) 16 IU/L 0-40 Not Available [facility] ([facility]) [address] [facility], [place], [address], 06/29/2019 14:10:05 06/27/20 19 06/29/2019 CMP, serum or plasm a ALT (SGPT) 5 IU/L 0-32 Not Available [facility] ([facility]) [address] [facility], [place], [address], 06/29/2019 14:10:05 Result Notes Documentation Provider Name and Address Organization Details Recorded Time Cbc W/ Auto Diff : isabelle cameron, [place] - [facility] 07/02/2019 13:15:45 Cmp, Serum Or Plasma : isabelle Bah nisha, [place] - [facility] 07/02/2019 13:16:37 Problems Name Problem SNOMED Code Status Onset Date Resolution Date Notes Provider Name and Address Organization Details Recorded Time Mixed anxiety and depressive disorder 217870766 Active Whit Valentinetianalulu null, [place] - [facility] 9 15:19:00 Alcohol dependence 59953238 Active Whit Joyce null, [place] - [facility] 9 15:19:24 Cigarette smoker 44723435 Active 019 Emily cameron, [place] - [facility] [...] Updated DateTime 9 167.64 cm 35.5 kg/m2 74830.3 2 g 64 /min 15 /min 99 [...] SNOMED-CT Code Diagnosis ICD10 Code Diagnosis Note 17140 Emily Bah CNP [facility] ([facility]) [address] [place] [address] 06/27/2019 15:22:35 06/28/2019 18:06:37 Mixed anxiety and depressive disorder 481556815 F41.8 If not already done, patient to see in-house/t [facility] mental health provider at this facility for evaluation and to have treatment plan optimized. Cigarette smoker 0896694 7 F17.210 Counseled on the importance of quitting smoking tobacco. Patient is at the pre-contem plation stage of change. Not ready to quit. Did not discuss pharmacolo gic and non-pharma cologic methods of quitting with patient. Patient is encouraged to call 3-010-QUIT -NOW for free tobacco cessation support and resources. Alcohol dependence 83150 003 F10.20 Currently voluntary for inpatient alcohol dependence treatment at [facility] . Doing well, remaining optimistic about recovery. [...] 2021 (MEDICAID REPLACEMENT - HMO) HAILEE Charles [id number] Tiana Charles Notes Date Note Type Note Provider Name and Address Organization Details Recorded Time 06/27/2019 text/html New patient pres ents today for H&P as required for admission to a chemical dependence treatment program at [facility] at [place]. The drug of choice was alcohol, ingested [...] Mood is good. Sleeping well. [facility] [place] [facility] sexual monogamous relationshipNo risk of - husb had [facility]. Last appt 06/07/19 LINNETTE Sun - [facility] 06/27/2019 15:36:56 OBGyn Episode No OBEpisode recorded.
== END 2025-03-15 10:33 | disposition home or self-care (01) ==
LOC: INJ CL 10:35
PROVIDERS: PCP Physician Assistant; Visit Provider Family Medicine
DX: M53.3 Sacrococcygeal disorders, not elsewhere classified (principal)
CPT/HCPCS: 27096; J0702; Q9966